=== PATIENT | male | born 1990 | race Two or more races ===

== ENCOUNTER 2017-06-27 20:29 | Emergency (ER) | payer OTHER ==
[2017-06-27 20:38] VITALS: RESP 16
[2017-06-27] MEDS ORDERED: KETOROLAC 30 MG/1 ML SDV IM ONE (20:48)
[2017-06-27] MEDS ORDERED: CYCLOBENZAPRINE 10 MG TAB PO ONE (20:48)
--- NOTE | 2017-06-27 20:55 | EDPHY ---
General Narrative: CHIEF COMPLAINT: Neck and shoulder pain HISTORY OF PRESENT ILLNESS: Patient complains of 1 week history of right-sided neck and shoulder pain. This was the day after playing handball. He did not fall or strike his head or neck. Did not head shoulder. He has no numbness or tingling. He does have pain that radiates down to the right elbow at times. It is moderate to severe. Worse with palpation and movement. It is point reproducible. No chest pain or shortness of breath. No weakness. No headache. No other associated complaints or modifying factors. ESTABLISHED ORTHOPEDIST: None REVIEW OF SYSTEMS: Ten systems reviewed and are negative unless otherwise noted in the HPI PAST MEDICAL HISTORY: None PAST SURGICAL HISTORY: None SOCIAL HISTORY: Former smoker, quitting 1 year ago. Occasional alcohol use. Works in the kitchen as a cook FAMILY HISTORY: Noncontributory EXAMINATION General Appearance: Alert, no distress HEENT: Head is normocephalic and atraumatic. Pupils are equal round reactive. Neck: Supple and without midline tenderness. No crepitus, step-off or deformity. There is bilateral trapezius tenderness. Some muscle spasm of the right trapezius noted. Cardiovascular: Pulses normal throughout. Symmetric radial pulses 2+. Brisk cap refill Neurological: A&O, sensory symmetric, shirt bander strength symmetric. Elbow strength symmetric. No wrist drop. Skin: Warm and dry, no rash no petechiae or purpura Extremities: Tenderness of the right trapezius and right latissimus. Tenderness of the right deltoid. No bony tenderness of the shoulder, elbow or wrist. Range of motion of the shoulders and elbows symmetric. Psychiatric: Mood and affect normal DIFFERENTIAL DIAGNOSES: Including but not limited to muscular strain, muscle spasm, cervical radiculopathy MDM: 8:50 p.m. Reproducible right neck and shoulder pain. This is all in the trapezius and the latissimus. There is no bony tenderness of the shoulder. There is some tenderness at the base of the right neck, mostly over the trapezius and erector spinae. No trauma or injury. He does have some pain that radiates down the arm , but no paresthesia or weakness. I have ordered x-ray of the neck, Flexeril and 1 dose of Toradol. He is in no acute distress. 9:55 p.m. Patient re-evaluated. He is feeling better after the Flexeril. X-ray of the cervical spine is suboptimal but no obvious fracture noted. Mild reversal of lordosis, consistent with the patient's muscle spasm. I do feel that this is purely musculoskeletal strain and/or spasm. I would like to treat him with short course of [place] and Flexeril. He has an appointment tomorrow morning at 8 :30 a.m. with his primary care physician. He will keep this. We discussed ED precautions as well. He is comfortable with this plan and discharged home in stable condition. SUPERVISION: This patient was independently evaluated without direct involvement of or examination by the attending physician. ED Precautions: Worsening pain. Erythema, edema, cyanosis, pallor, paresthesia or anesthesia. - Diagnostics Imaging Results: Imaging Impressions Cervical Spine X-Ray 06/27/17 20:48 Impression: Suboptimal swimmer's view. Otherwise, no acute osseous abnormality. - History Smoking Status: Never smoked - Objective Vital Signs: Initial Vital Signs Temperature (C) 97.9 F 06/27/17 20:35 Heart Rate 88 06/27/17 20:35 Respiratory Rate 16 06/27/17 20:35 Blood Pressure 169/90 H 06/27/17 20:35 O2 Sat (%) 99 06/27/17 20:35 O2 Delivery Mode Room Air Allergies/Adverse Reactions: No Known Allergies Allergy (Unverified 06/27/17 20:35) Home Medications: Medication Instructions Recorded NK [No Known Home Meds] 06/27/17 Medications Given: Discontinued Medications Hydrocodone Bitart/Acetaminophen ([place] 5/325mg Prepack#6) 1 btl TAKEHOME EDNOW ONE Stop: 06/27/17 22:00 Last Admin: 06/27/17 22:15 Dose: 1 btl Cyclobenzaprine HCl (Flexeril) 10 mg PO EDNOW ONE Stop: 06/27/17 20:49 Last Admin: 06/27/17 21:02 Dose: 10 mg Cyclobenzaprine HCl (Flexeril 10 Mg Prepack#3) 1 btl TAKEHOME EDNOW ONE Stop: 06/27/17 22:00 Last Admin: 06/27/17 22:15 Dose: 1 btl Ketorolac Tromethamine (Toradol) 30 mg IM EDNOW ONE Stop: 06/27/17 20:49 Last Admin: 06/27/17 21:02 Dose: 30 mg Departure - Departure Disposition: Home, Routine, Self-Care Clinical Impression: Muscle spasm Trapezius muscle strain Qualifiers: Encounter type: initial encounter Laterality: right Qualified Code(s): S46.811A - Strain of other muscles, fascia and tendons at shoulder and upper arm level, right arm, initial encounter Condition: Good Instructions: Hydrocodone/Acetaminophen (By mouth), Cyclobenzaprine (By mouth) , Cervical Strain (ED), Muscle Strain (ED), Muscle Spasm (ED) Additional Instructions: 1. Flexeril as prescribed as needed 2. [place] as prescribed as needed 3. Keep your appointment tomorrow morning with primary care physician 4. ED precautions as discussed Referrals: JOSE MIGUEL DELATORRE [Other] - As per Instructions
[2017-06-27] MEDS ORDERED: HYDROCOD/APAP 5/325 PREPACK#6 BTL TAKEHOME ONE (21:59)
[2017-06-27] MEDS ORDERED: CYCLOBENZAPRINE 10MG PREPACK#3 BTL TAKEHOME ONE (21:59)
[2017-06-27 22:44] VITALS: BP 134/79; PULSE 70; TEMP 98.2; O2SAT 97
== END 2017-06-27 22:18 | disposition home or self-care (01) ==
DX: S46.811A Strain of other muscles, fascia and tendons at shoulder and upper arm level, right arm, initial encounter (principal); M62.838 Other muscle spasm; Z87.891 Personal history of nicotine dependence; X58.XXXA Exposure to other specified factors, initial encounter; Y93.73 Activity, racquet and hand sports
CPT/HCPCS: J1885